=== PATIENT | female | born 1985 | race Caucasian/White ===

== ENCOUNTER 2018-05-16 16:01 | Emergency (ER) | payer SELFPAY ==
[~2018-05-16] VITALS: Ht 162.6 cm; Wt 76.4 kg
--- NOTE | 2018-05-16 16:11 | NUR ---
PT AMBULATES TO BED 4
[2018-05-16 16:13] VITALS: BP 131/109
--- NOTE | 2018-05-16 16:13 | NUR ---
32Y/F BIB FAMILY WITH C/O LACERATION ON HER RT THUMB WHILE WASHING DISHES TODAY. NO BLEEDING AT THIS TIME. + ROM, > 3 CAP REFILL, NO SWELLING OR REDNESS AT THIS TIME, PT STATES NO PAIN AT THIS TIME. BED DOWN. BEDRAIL UP X 1. ER MD AWARE AND NOTIIFED AT THIS TIME. HX; DENIES RX; DENIES
--- NOTE | 2018-05-16 16:39 | NUR ---
Patient being evaluated by physician at bedside.
[2018-05-16] MEDS ORDERED: LIDOCAINE 2% 1000 MG/50 ML VIAL INJ ONE (16:50)
[2018-05-16] MEDS ORDERED: BACITRACIN OINT 500 UNITS/GM PKT TP ONE (17:25)
[2018-05-16] MEDS ORDERED: NEOMYCIN/POLYMYXIN/BACITRACIN 0.9 GM/1 PKT TP ONE (17:30)
[2018-05-16 17:58] VITALS: BP 128/101
== END 2018-05-16 17:58 | disposition home or self-care (01) ==
LOC: MED 16:01
DX: S61.011A Laceration without foreign body of right thumb without damage to nail, initial encounter (principal); X58.XXXA Exposure to other specified factors, initial encounter
CPT/HCPCS: 12001; 90471; 90715; 99283; J2001